=== PATIENT | male | born 1945 | race Caucasian/White ===

== ENCOUNTER 2016-09-25 09:00 | Outpatient (CLI) ==
[2013-04-08 17:36] VITALS: BMI 33.0
[2016-09-25 12:43] LABS: BASOPHILS % (AUTO) 0.8 % (0.0-3.0); EOSINOPHILS # (AUTO) 0.2 K/ul (0.0-0.7); EOSINOPHILS % (AUTO) 4.2 % (0.0-7.0); HEMATOCRIT 42.3 % (42.0-52.0); HEMOGLOBIN 13.9 g/dl (14.0-18.0); IMMATURE GRANULOCYTE % (AUTO) 0.4 % (0.0-5.0); LYMPHOCYTES % (AUTO) 18.4 (10.0-50.0); MEAN CORPUSCULAR HEMOGLOBIN 30.7 pg (27.0-31.0); MEAN CORPUSCULAR HGB CONC 32.9 (31.8-35.4); MEAN CORPUSCULAR VOLUME 93.4 fl (80.0-94.0); MONOCYTES # (AUTO) 0.5 K/uL (0.4-2.0); MONOCYTES % (AUTO) 9.2 (0-10); NEUTROPHILS # (AUTO) 3.5 K/ul (2.0-6.9); PLATELET COUNT 275 10^3/uL (140-440); RED BLOOD COUNT 4.53 10^6/ul (4.70-6.10); WHITE BLOOD COUNT 5.22 K/ul (4.2-10.2)
[2016-09-25 12:59] LABS: BILIRUBIN,URINE Negative (NEGATIVE); KETONES,URINE Negative (NEGATIVE); LEUKOCYTE ESTERASE ,URINE Negative (NEGATIVE); NITRITE,URINE Negative (NEGATIVE); PH,URINE 6.5 (5-9); PROTEIN,URINE Negative (NEGATIVE); URINE, BLOOD Negative (NEGATIVE)
[2016-09-25 13:04] LABS: ADD URINE MICROSCOPIC NO
[2016-09-25 13:28] LABS: ALBUMIN 3.5 g/dL (3.4-5.0); ALBUMIN/GLOBULIN RATIO 0.97; ANION GAP 10.2; BILIRUBIN,TOTAL 0.42 mg/dL (0.00-1.20); BUN/CREATININE RATIO 9.83; CALCIUM 8.7 mg/dL (8.2-10.2); CHOL/HDL RATIO 6.1 (4.5-6.4); CREATININE 1.22 mg/dL (0.60-1.10); POTASSIUM 4.2 mmol/L (3.5-5.1); TOTAL PROTEIN 7.1 g/dL (5.8-8.1)
[2016-09-26 15:59] LABS: PSA, FREE 1.24 ng/mL
== END 2016-09-25 09:01 | disposition home or self-care (01) ==
LOC: LAB 09:00
PROVIDERS: ATTEND General Practice
DX: R39.11 Hesitancy of micturition (principal); R39.15 Urgency of urination; Z00.00 Encounter for general adult medical examination without abnormal findings; E78.5 Hyperlipidemia, unspecified
CPT/HCPCS: 36415; 80053; 80061; 81001; 84443; 85025

== ENCOUNTER 2016-10-02 16:02 | Outpatient (CLI) ==
[2013-04-08 17:36] VITALS: BMI 33.0
--- NOTE | 2016-10-02 16:28 | DI ---
Exam: Left foot three-view. HISTORY: Pain and left foot. Findings: Three images of the left foot are submitted. These demonstrate no acute fracture or disl ocation. There is no osseous erosion or radiodense foreign body. There is mild joint space narrowi ng and sclerosis at the first metatarsophalangeal joint. There are small dorsal and plantar calcane al spurs. Atherosclerotic calcifications are noted. No focal soft tissue swelling is noted. Impressions: Mild degenerative disease at the first metatarsophalangeal joint. Small dorsal and plantar calcaneal spurs. No acute fracture or dislocation. Atherosclerosis.
== END 2016-10-02 16:03 | disposition home or self-care (01) ==
LOC: RAD 16:02
PROVIDERS: ATTEND General Practice
DX: M79.672 Pain in left foot (principal)

== ENCOUNTER 2017-02-19 13:29 | Outpatient (CLI) ==
[2013-04-08 17:36] VITALS: BMI 33.0
--- NOTE | 2017-02-19 14:25 | CT ---
EXAM: CT ABDOMEN AND PELVIS HISTORY: Lower abdominal pain TECHNIQUE: CT abdomen and pelvis without intravenous contrast. Images were reconstructed using 5 mm section thickness. Reformations were prepared. COMPARISON: None FINDINGS: Diagnostic limitations exist without including contrast enhanced images. No focal hepatic or splenic lesions identified. Gallbladder, pancreas and adrenal glands are within normal limits. There is a upper posterior exophytic 1.4 cm mass off of the right renal cortex with higher than water attenuatio n possibly representing a cyst with internal proteinaceous fluid although correlation with ultrasound should be considered to assure simple nature. There is subtle nonspecific perinephric fat stranding . No hydronephrosis or evidence of ureteral obstruction. Mild atherosclerotic disease. Stomach is within normal limits. Normal appendix. There is mild sigmoid diverticulosis. Circumferent ial thickening of the urinary bladder. The prostate is significantly enlarged and lobulated. Given the degree of prostate lobulation, a primary or secondary neoplasm of the urinary bladder would be di fficult to completely exclude although probably less likely. Correlate clinically. There is no ascit es. Prominent fatty inguinal canals. Age-related degenerative changes of the spine and hips. Lung bases are clear. No pneumoperitoneum. There is no ascites. IMPRESSION: 1. The prostate is significantly enlarged and lobulated. Given the degree of prostate lobulation, a primary or secondary neoplasm of the urinary bladder would be difficult to completely exclude althoug h probably less likely. Correlate clinically. Circumferential thickening of the urinary bladder likel y related to a degree of chronic, partial bladder outlet obstruction or cystitis. 2. Small exophytic right renal cortical mass possibly a cyst. Correlate with ultrasound. 3. Mild sigmoid diverticulosis without diverticulitis. 4. Mild atherosclerosis.
[2017-02-19 16:45] LABS: BASOPHILS # (AUTO) 0.1 K/uL (0-0.2); BASOPHILS % (AUTO) 0.9 % (0.0-3.0); EOSINOPHILS # (AUTO) 0.2 K/ul (0.0-0.7); EOSINOPHILS % (AUTO) 2.2 % (0.0-7.0); HEMATOCRIT 42.8 % (42.0-52.0); HEMOGLOBIN 14.6 g/dl (14.0-18.0); IMMATURE GRANULOCYTE % (AUTO) 0.3 % (0.0-5.0); LYMPHOCYTES % (AUTO) 14.3 (10.0-50.0); MEAN CORPUSCULAR HEMOGLOBIN 30.9 pg (27.0-31.0); MEAN CORPUSCULAR HGB CONC 34.1 (31.8-35.4); MEAN CORPUSCULAR VOLUME 90.5 fl (80.0-94.0); MONOCYTES # (AUTO) 0.5 K/uL (0.4-2.0); MONOCYTES % (AUTO) 7.1 (0-10); NEUTROPHILS # (AUTO) 5.2 K/ul (2.0-6.9); NEUTROPHILS % (AUTO) 75.2; PLATELET COUNT 311 10^3/uL (140-440); RED BLOOD COUNT 4.73 10^6/ul (4.70-6.10); WHITE BLOOD COUNT 6.94 K/ul (4.2-10.2)
[2017-02-19 17:11] LABS: ALBUMIN 3.7 g/dL (3.4-5.0); ALBUMIN/GLOBULIN RATIO 0.95; BILIRUBIN,TOTAL 0.59 mg/dL (0.00-1.20); BUN/CREATININE RATIO 12.38; CALCIUM 9.5 mg/dL (8.2-10.2); CREATININE 1.05 mg/dL (0.60-1.10); TOTAL PROTEIN 7.6 g/dL (5.8-8.1)
[2017-02-20 17:26] LABS: ADD URINE MICROSCOPIC NO; BILIRUBIN,URINE Negative (NEGATIVE); KETONES,URINE Negative (NEGATIVE); LEUKOCYTE ESTERASE ,URINE Negative (NEGATIVE); NITRITE,URINE Negative (NEGATIVE); PROTEIN,URINE Negative (NEGATIVE); URINE, BLOOD Negative (NEGATIVE)
== END 2017-02-19 13:30 | disposition home or self-care (01) ==
LOC: RAD 13:29
PROVIDERS: ATTEND General Practice
DX: R10.9 Unspecified abdominal pain (principal)
CPT/HCPCS: 36415; 80053; 81001; 85025

== ENCOUNTER 2017-10-15 11:51 | Outpatient (CLI) ==
[2013-04-08 17:36] VITALS: BMI 33.0
== END 2017-10-15 11:52 | disposition home or self-care (01) ==
LOC: FCC-LAB 11:51
PROVIDERS: ATTEND General Practice
DX: E78.5 Hyperlipidemia, unspecified (principal); R94.6 Abnormal results of thyroid function studies; Z12.5 Encounter for screening for malignant neoplasm of prostate; Z79.899 Other long term (current) drug therapy
CPT/HCPCS: 36415; 80053; 80061; 81001; 84443; 85025

== ENCOUNTER 2017-10-22 12:16 | Outpatient (CLI) ==
[2013-04-08 17:36] VITALS: BMI 33.0
== END 2017-10-22 12:17 | disposition home or self-care (01) ==
LOC: LAB 12:16
PROVIDERS: ATTEND General Practice
DX: R79.89 Other specified abnormal findings of blood chemistry (principal); Z79.899 Other long term (current) drug therapy
CPT/HCPCS: 36415; 84443

== ENCOUNTER 2018-10-28 08:24 | Outpatient (CLI) ==
[2013-04-08 17:36] VITALS: BMI 33.0
== END 2018-10-28 08:25 | disposition home or self-care (01) ==
LOC: RHC-LAB 08:24
PROVIDERS: ATTEND General Practice
DX: E78.5 Hyperlipidemia, unspecified (principal)
CPT/HCPCS: 36415; 80053; 80061; 81001; 85025

== ENCOUNTER 2018-11-04 15:38 | Outpatient (CLI) ==
[2013-04-08 17:36] VITALS: BMI 33.0
== END 2018-11-04 15:39 | disposition home or self-care (01) ==
LOC: RHC-LAB 15:38
PROVIDERS: ATTEND General Practice
DX: N40.0 Benign prostatic hyperplasia without lower urinary tract symptoms (principal); R94.6 Abnormal results of thyroid function studies; R97.20 Elevated prostate specific antigen [PSA]; Z12.5 Encounter for screening for malignant neoplasm of prostate
CPT/HCPCS: 36415; 84443

== ENCOUNTER 2018-12-31 08:33 | Outpatient (CLI) ==
[2013-04-08 17:36] VITALS: BMI 33.0
== END 2018-12-31 08:34 | disposition home or self-care (01) ==
LOC: RHC-LAB 08:33
PROVIDERS: ATTEND General Practice
DX: E78.5 Hyperlipidemia, unspecified (principal); R94.6 Abnormal results of thyroid function studies; Z79.899 Other long term (current) drug therapy; Z12.11 Encounter for screening for malignant neoplasm of colon; Z00.00 Encounter for general adult medical examination without abnormal findings; C44.621 Squamous cell carcinoma of skin of unspecified upper limb, including shoulder
CPT/HCPCS: 36415; 80053; 80061; 82272

== ENCOUNTER 2019-01-03 09:47 | Outpatient (CLI) ==
[2013-04-08 17:36] VITALS: BMI 33.0
== END 2019-01-03 09:48 | disposition home or self-care (01) ==
LOC: RHC-LAB 09:47
PROVIDERS: ATTEND General Practice
DX: E78.5 Hyperlipidemia, unspecified (principal); R94.6 Abnormal results of thyroid function studies; Z12.11 Encounter for screening for malignant neoplasm of colon; Z79.899 Other long term (current) drug therapy
CPT/HCPCS: 36415; 81001; 85025

== ENCOUNTER 2019-01-10 08:24 | Outpatient (CLI) | payer OTHER ==
[2013-04-08 17:36] VITALS: BMI 33.0
--- NOTE | 2019-01-10 11:23 | CT ---
EXAM: CT of the abdomen pelvis with contrast History: Lower abdominal pain, lower uterine stream Comparison: CT abdomen pelvis 02/19/2017 Technique: Multiplanar CT images through the abdomen pelvis were obtained following administration o f IV contrast Findings: Lung bases are clear. No acute osseous abnormalities. No gallstones identified by CT. No liver or splenic lesions. 1.8 cm indeterminate mass within the r ight kidney. Left kidney is unremarkable. Pancreas is within normal limits. Adrenal glands are nor mal. No bowel obstruction. Significantly enlarged prostate abutting the base of the bladder. The b ladder is moderately distended. No perirectal inflammation. Colonic diverticulosis. No free air an d no ascites. No inflammatory stranding. The appendix is not dilated or inflamed. No pathologicall y enlarged lymph nodes. Impression: 1. Enlarged prostate abutting the base of the bladder. 2. The bladder is distended most likely due to bladder outlet obstruction from the enlarged prostate . 3. Colonic diverticulosis. 4. Indeterminate mass within the right kidney. Recommend further evaluation with renal ultrasound
== END 2019-01-10 08:25 | disposition home or self-care (01) ==
LOC: RAD 08:24
PROVIDERS: ATTEND General Practice
DX: R10.9 Unspecified abdominal pain (principal); N40.0 Benign prostatic hyperplasia without lower urinary tract symptoms; D04.62 Carcinoma in situ of skin of left upper limb, including shoulder

== ENCOUNTER 2019-01-21 08:20 | Outpatient (CLI) ==
[2013-04-08 17:36] VITALS: BMI 33.0
--- NOTE | 2019-01-21 11:06 | US ---
EXAMINATION: Retroperitoneal renal sonogram. HISTORY: Renal mass TECHNIQUE: Real time with duplex. COMPARISON: CT dated 01/10/2019 FINDINGS: The right kidney measures 12 x 4.7 x 5.1 cm. Superior pole hypoechoic, partially exophytic cyst with low-level internal echoes and possible thin septation measures 1.6 x 1.7 x 2.2 cm. No hydronephrosi s or obvious calculi. The left kidney measures 12.3 x 4.5 x 4.1 cm. No hydronephrosis or obvious calculi. Visualized bladder is unremarkable. IMPRESSION: 1. No acute findings. 2. Right superior pole 1.7 cm complex cyst. Recommend MRI versus renal mass protocol CT for further evaluation. 3. Normal left renal ultrasound.
== END 2019-01-21 08:21 | disposition home or self-care (01) ==
LOC: RAD 08:20
PROVIDERS: ATTEND General Practice
DX: N40.0 Benign prostatic hyperplasia without lower urinary tract symptoms (principal); N28.89 Other specified disorders of kidney and ureter

== ENCOUNTER 2024-02-04 09:21 | Observation (INO) ==
--- NOTE | 2024-02-04 09:27 | ED.PDOC ---
General ED Provider: Dr. KELLIE SANDS MD Chief Complaint: Dizziness Stated Complaint: Patient is a 78-year-old male that reported to the emergency department for near syncopal episode and acute abdominal pain. Patient stated that on Sunday he ate some soup and not too long after he got nauseated with vomiting. He stated that he did not vomit up any blood. Patient stated that starting yesterday he continued to have nausea with dizziness. Patient stated that he has had multiple dizziness spells that were different than in the past when he he would get up out of the bed and feel little dizzy. Patient stated that when he got up out of his bed and walked down the [place] he got seriously dizzy. Patient stated that he did not fall and was able to catch himself. Patient stated that he has not had any recent headaches, head injuries, or any acute injuries. Patient stated that he has been able to hold down some fluids. Patient stated that he has not taken anything for his symptoms. Patient stated that he is continue to have bilateral lower abdominal pain. Patient denied any hematochezia, hemoptysis, or melanic stools. Patient rates his pain at an 8 out of 10 at its worst. Patient stated that it is an aching pain. Patient stated that his last bowel movement was 2 days ago and was normal in consistency. Patient states that nothing makes the symptoms worse or better. Patient denies any chest pain, shortness of breath, vomiting, loss of consciousness, headache, fever, or any other acute symptoms not currently mentioned in HPI. Patient's GCS is 15. Patient's vital signs are stable. Time Seen by Provider: 02/04/24 09:23 Mode of Arrival: Walk-In Information Source: Patient Exam Limitations: No limitations Primary Care Provider: DANGELO ELLIOTT APRN, [employer] DEVELOPER-C Nursing and Triage Documentation Reviewed and Agree: Yes Does Patient Take Opioids?: No Is Patient Opioid Naive?: No What is Opioid Naive?: *Opioid Naive implies the patient is not already taking opioids or not chronically receiving opioids on a daily basis. *PRN dosing is not "usually" associated with tolerance. *Patients are at higher risk of over-sedation and aspiration. Is Patient Opioid Tolerant?: No What is Opioid Tolerant?: *Opioid Tolerance implies less than the expected response to an opioid. *Acquired tolerance is defined by the patient taking 60mg of oral morphine daily (or equianalgesic dose of another opioid) for 1 week or more. *Often associated with chronic pain. *May take more than usual dose to achieve desired pain control. Review of Systems Review Of Systems Constitutional: Reports No symptoms Eyes: Reports No symptoms Ears, Nose, Mouth, Throat: Reports No symptoms Respiratory: Reports No symptoms Cardiac: Reports Lightheadedness GI: Reports Abdominal pain : Reports No symptoms Musculoskeletal: Reports No symptoms Skin: Reports No symptoms Neurological: Reports Anxiety Endocrine: Reports No symptoms Hematologic/Lymphatic: Reports No symptoms All Other Systems: Reviewed and Negative [facility] Medical History Sinusitis SEASONAL ALLERGIES J32.9 - Chronic sinusitis, unspecified (ICD-10) Arthritis RIGHT MIDDLE FINGER M19.90 - Unspecified osteoarthritis, unspecified site (ICD-10) Male erectile dysfunction AT TIMES. PATIENT DOES HAVE A SLOW URINE STREAM N52.9 - Male erectile dysfunction, unspecified (ICD-10) Family History Mother , HEART ATTACK at age 83. Diabetes Dementia FATHER , RESPITORY FAILURE at age 76. No problems noted. Social History Smoking and tobacco status: Never smoker Surgical History History of surgery on integumentary structure PATIENT HAS HAD 6 OR MORE MOLES REMOVED OVER A PERIOD OF YEARS Z98.890 - Other specified postprocedural states (ICD-10) Physical Exam Physical Exam Appearance: Reports Well-appearing, No pain distress and Well-nourished Ill-appearing: None Pain Distress: None Eyes: Reports Conjunctiva clear ENT: Reports Nose normal and Oropharynx normal Neck: Supple Respiratory: Reports Airway patent, Breath sounds clear and Breath sounds equal Cardiovascular: Reports RRR, Pulses normal, No rub and No murmur GI/: Reports Soft, Nontender, No masses and Bowel sounds normal Musculoskeletal: Reports Normal strength, ROM intact, No edema and No calf tenderness Skin: Reports Warm, Dry and Normal color Neurological: Reports Sensation intact, Motor intact, Cranial nerves intact, Alert and Oriented Psychiatric: Reports Anxious Course Course 02/04/24 09:35 02/04/24 09:35 Orders, Labs, Meds: Lab Review 02/04/24 02/04/24 09:35 10:41 WBC 9.79 RBC 4.37 L Hgb 13.1 L Hct 39.7 L MCV 90.8 MCH 30.0 MCHC 33.0 RDW Coeff of Magali 12.9 Plt Count 300 Immature Gran % (Auto) 0.3 Neut % (Auto) 85.5 H Lymph % (Auto) 5.9 L [place] % (Auto) 7.6 Eos % (Auto) 0.3 Baso % (Auto) 0.4 Neut # (Auto) 8.4 H Lymph # (Auto) 0.6 [place] # (Auto) 0.7 Eos # (Auto) 0.0 Baso # (Auto) 0.0 Immature Gran # (Auto) 0.0 Sodium 129.0 L Potassium 4.39 Chloride 98.9 Carbon Dioxide 21.2 L Anion Gap 13.29 BUN 16.3 Creatinine 1.55 H Estimated GFR (MDRD) 44.00 BUN/Creatinine Ratio 10.51 Glucose 139.8 H Lactic Acid 0.84 Calcium 8.61 Total Bilirubin 0.75 AST 40.4 ALT 26.1 Alkaline Phosphatase 90.5 Troponin I 0.031 Total Protein 7.65 Albumin 4.16 Globulin 3.49 Albumin/Globulin Ratio 1.19 Urine Color Judy Urine Clarity Clear Urine pH 6.0 Ur Specific [place] >=1.030 Urine Protein 2+ H Urine Glucose (UA) Negative Urine Ketones 1+ H Urine Blood Trace-intact H Urine Nitrite Negative Urine Bilirubin Negative Urine Urobilinogen 0.2 Ur Leukocyte Esterase Negative Urine Microscopic RBC 2-5 Ur Squamous Epith Cells Not Reportable Urine Mucus 1+ H. pylori IgG Antibody Negative Influ A Molecular Assay Negative by naat Influ B Molecular Assay Negative by naat SARS CoV-2 RNA Rapid VANGIE Negative Orders Category Date Time Status EKG-(ED ONLY) Stat CARDIO 02/04/24 09:23 Completed NPO REMINDER: IMAGING ONCE CARE 02/04/24 09:54 Completed ED REFRIGERATION LEAD APPLIED .ONCE EMERGENCY 02/04/24 09:23 Active CBC W/ AUTO DIFF Stat LAB 02/04/24 09:35 Completed COMPREHENSIVE METABOLIC PANEL Stat LAB 02/04/24 09:35 Completed FLU A/B MOLECULAR Stat LAB 02/04/24 09:35 Completed H. PYLORI SCREEN Stat LAB 02/04/24 09:35 Completed LACTIC ACID Stat LAB 02/04/24 09:35 Completed SARS COV-2 RNA RAPID VANGIE Stat LAB 02/04/24 09:35 Completed TROPONIN I Stat LAB 02/04/24 09:35 Completed URINALYSIS C & S IF INDICATED Stat LAB 02/04/24 10:41 Completed Morphine Sulfate [Morphine 2 mg/ml Syringe] Meds 02/04/24 09:50 Discontinued 2 mg IVP ONCE ONE Ondansetron HCl/Pf [Zofran 4 mg/2 ml] Meds 02/04/24 09:50 Discontinued 4 mg IVP ONCE STA Pantoprazole Sodium [Protonix] Meds 02/04/24 09:50 Discontinued 40 mg IVP ONCE ONE Ringers Lactated Solution [Lactated Ringers] 1,000 ml Meds 02/04/24 10:33 Active IV 125 mls/hr Sodium Chloride 0.9% [Sodium Chloride] 1,000 ml Meds 02/04/24 09:24 Discontinued IV BOLUS CHEST, 1V AP ONLY Stat RADS 02/04/24 09:[address] ABDOMEN/PELVIS W CONTRAST Stat RADS 02/04/24 09:[address] HEAD W/O CONTRAST Stat RADS 02/04/24 09:23 Taken Medications Generic Name Dose Route Start Last Admin Trade Name Freq PRN Reason Stop Dose Admin Lactated Ringer's 1,000 mls @ 125 mls/hr 02/04/24 10:33 02/04/24 11:20 Lactated Ringers IV 02/04/24 18:32 125 mls/hr .Q8H ONE Administration Discontinued Medications Generic Name Dose Route Start Last Admin Trade Name Freq PRN Reason Stop Dose Admin Sodium Chloride 1,000 mls @ 1,000 mls/hr 02/04/24 09:24 02/04/24 11:15 Sodium Chloride IV 02/04/24 10:23 Infused BOLUS ONE Infusion Morphine Sulfate 2 mg 02/04/24 09:50 02/04/24 09:59 Morphine Sulfate 2 Mg/Ml Syringe IVP 02/04/24 09:51 2 mg ONCE ONE Administration Ondansetron HCl 4 mg 02/04/24 09:50 02/04/24 09:58 Ondansetron Hcl/Pf 4 Mg/2 Ml Sdv IVP 02/04/24 09:51 4 mg ONCE STA Administration Pantoprazole Sodium 40 mg 02/04/24 09:50 02/04/24 09:58 Pantoprazole Sodium 40 Mg Vial IVP 02/04/24 09:51 40 mg ONCE ONE Administration Vital Signs: Temp Pulse Resp BP Pulse Ox 02/04/24 09:23 98.7 F 71 18 145/77 H 95 ALIZA Risk Score ALIZA Risk Score: Risk Score Odds of by 30D 0 0.1 (0.1-0.2) 1 0.3 (0.2-0.3) 2 0.4 (0.3-0.5) 3 0.7 (0.6-0.9) 4 1.2 (1.0-1.5) 5 2.2 (1.9-2.6) 6 3.0 (2.5-3.6) 7 4.8 (3.8-6.1) Physician Progress Note: Patient is a 78-year-old male that reported to the emergency department for near syncopal episode and epigastric abdominal pain. Patient stated that he has a history of dizziness and has been seen by multiple specialist and has not been able to find out what is going on with him. Patient stated that today he just felt progressively worse and had weakness. Patient stated that he has not passed out nor has he had any recent head injury. Patient stated that he has not had any recent falls. Patient did state that yesterday he had some pizza and has had epigastric pain since. Patient stated that he takes his Protonix as prescribed and this has not helped his symptoms. Patient denied any radiations of his epigastric pain. Patient rates his pain at a 6 out of 10. Patient stated that it is a burning pain. Patient stated that his last colonoscopy was 2 years ago and was normal. Patient does not think he has ever had an upper endoscopy. Patient stated that he has also had some nausea but no vomiting with his symptoms. Patient states that nothing makes his symptoms worse nor nothing makes it better. Patient also claimed to have a cough for the past couple days. Patient stated that he has not been around any other sick contacts. Patient did state that he has been anxious lately as his has been placed in a half-way. Patient denies any hematochezia, hemoptysis, or melanic stools. Patient also denied any other acute symptoms such as chest pain, shortness of breath, vomiting, headache, fever, or any other acute symptoms not currently mentioned in HPI. Patient's GCS is 15. Patient's vital signs are currently stable. Will order IV NS 1 L bolus once for dehydration -Will order CT head for near syncope. GCS 15. -WIll order CXR, EKG, troponin and baseline labs. Will order an H. pylori test -Will give the patient IV morphine 2 mg once for 8 of 10 abdominal pain. -Will order CT of the abdomen and pelvis with contrast to rule out diverticulitis versus any other acute abdominal pathology. -Will give the patient IV Protonix 40 mg. -Will give the patient IV ondansetron 4 mg once for nausea. -EKG shows sinus rhythm with premature atrial complexes. Ventricular rate is [address] elevations noted. [place]oden normal. This was interpreted by the ER physician. -Chest x-ray shows no acute cardiopulmonary disease. This was interpreted by the ER physician. Radiology states that patient has left basilar atelectasis. -Patient found to have hyponatremia of 129. Patient received NS at this visit. -Patient has anemia of chronic disease with a hemoglobin of 13 and hematocrit of 39. -Patient has an MARGO on CKD. Patient's creatinine is 1.51 which is elevated from previous creatinines. Will continue IV fluids (IV lactated Ringer's 125 mL an hour 1 L.) -Troponin is negative. -Patient is flu and strep negative. -CT of the head shows no acute intercranial bleed or pathology. -CT of the abdomen and pelvis showed - Bladder wall thickening which may be secondary to bladder outlet obstruction versus cystitis. Liquefied stool in the right-sided colon suggestive of enterocolitis. Colonic diverticula without evidence of acute diverticulitis. Normal appendix. Enlarged prostate measuring 6.8 cm. Right renal cyst measuring 2.5 cm. Small bilateral fat containing inguinal hernias. Small hiatal hernia. Mild bibasilar atelectasis and/or pneumonitis. -Will treat patient's gastroenteritis with flagyl. Will call hospitalist about admission. [phone]) spoke to hospitalist at [facility] who agreed to accept the patient for acute kidney injury, gastroenteritis, dehydration, near syncopal episodes. Patient's vital signs are stable at time of admission to observation at the hospital. Discharge Plan Discharge Patient Disposition: PLACED OBSERVATION Discharge Problem: Near syncope, Acute hyponatremia, Acute kidney injury, Anemia of chronic disease, Dehydration, Diverticulosis, Benign cyst of right kidney, Gastroenteritis Benign prostatic hyperplasia Qualifiers: Lower urinary tract symptom presence: unspecified whether lower urinary tract symptoms present Qualified Code(s): N40.0 - Benign prostatic hyperplasia without lower urinary tract symptoms Did you review [place] [employer] for ALL controlled substances?: Not Applicable ED Provider: KELLIE SANDS Condition: Stable
[2024-02-04 09:29] VITALS: BMI 34.0
[2024-02-04 09:39] LABS: BASOPHILS % (AUTO) 0.4 % (0.0-3.0); EOSINOPHILS % (AUTO) 0.3 % (0.0-7.0); HEMATOCRIT 39.7 % (42.0-52.0); HEMOGLOBIN 13.1 g/dl (14.0-18.0); IMMATURE GRANULOCYTE % (AUTO) 0.3 % (0.0-5.0); LYMPHOCYTES # (AUTO) 0.6 K/uL (0.60-3.4); LYMPHOCYTES % (AUTO) 5.9 (10.0-50.0); MEAN CORPUSCULAR VOLUME 90.8 fl (80.0-94.0); MONOCYTES # (AUTO) 0.7 K/uL (0.4-2.0); MONOCYTES % (AUTO) 7.6 (0-10); NEUTROPHILS # (AUTO) 8.4 K/ul (2.0-6.9); NEUTROPHILS % (AUTO) 85.5 % (42.2-75.2); PLATELET COUNT 300 10^3/uL (140-440); RDW COEFFICIENT OF VARIATION 12.9 % (11.6-14.8); RED BLOOD COUNT 4.37 10^6/ul (4.70-6.10); WHITE BLOOD COUNT 9.79 K/ul (4.2-10.2)
[2024-02-04] MEDS: SODIUM CHLORIDE 1,000 ML IV ONE (09:51)
[2024-02-04 09:54] LABS: ALANINE AMINOTRANSFERASE 26.1 U/L (0-50); ALBUMIN 4.16 g/dL (3.5-5.0); ALKALINE PHOSPHATASE 90.5 U/L (56-119); ASPARTATE AMINO TRANSFERASE 40.4 U/L (17-59); BILIRUBIN,TOTAL 0.75 mg/dL (0.2-1.3); BLOOD UREA NITROGEN 16.3 mg/dL (9-20); CALCIUM 8.61 mg/dL (8.4-10.2); CARBON DIOXIDE 21.2 mmol/L (22-30.0); CHLORIDE 98.9 mmol/L (98-107); CREATININE 1.55 mg/dL (0.60-1.10); GLUCOSE 139.8 mg/dL (74-106); POTASSIUM 4.39 mmol/L (3.5-5.1); TOTAL PROTEIN 7.65 g/dL (6.3-8.2)
[2024-02-04 09:57] LABS: MOLECULAR FLU A NEGATIVE BY NAAT (NEGATIVE); MOLECULAR FLU B NEGATIVE BY NAAT (NEGATIVE); SARS COV-2 RNA RAPID NAAT NEGATIVE (NEGATIVE)
[2024-02-04] MEDS: PROTONIX IVP ONE (09:58)
[2024-02-04] MEDS: ZOFRAN 4 MG/2 ML IVP STA (09:58)
[2024-02-04] MEDS: MORPHINE 2 MG/ML SYRINGE IVP ONE (09:59)
[2024-02-04 10:06] LABS: TROPONIN I 0.031 ng/ml (0.0000-0.120)
--- NOTE | 2024-02-04 10:18 | DI ---
EXAM: CHEST RADIOGRAPH TECHNIQUE: Single frontal chest radiograph. HISTORY: Dizziness. COMPARISON: 11/22/2021. FINDINGS: Mild left basilar atelectasis. Old calcified granulomatous disease. Lungs are otherwise clear. Previous median sternotomy, aortic valve replacement, and Atriaclip. Normal heart size. There is no pleural effusion. There is no pneumothorax. IMPRESSION: 1. Mild left basilar atelectasis. 2. Prior cardiac surgery. 3. Otherwise unremarkable chest radiograph.
[2024-02-04 10:27] LABS: H. PYLORI ANTIBODY NEGATIVE (NEGATIVE)
[2024-02-04 10:52] LABS: BILIRUBIN,URINE Negative (NEGATIVE); CLARITY,URINE Clear (CLEAR); COLOR,URINE Amber (YELLOW); GLUCOSE, URINE (UA) Negative (NEGATIVE); KETONES,URINE 1+ (NEGATIVE); LEUKOCYTE ESTERASE ,URINE Negative (NEGATIVE); NITRITE,URINE Negative (NEGATIVE); PROTEIN,URINE 2+ (NEGATIVE); URINE, BLOOD Trace-intact (NEGATIVE); UROBILINOGEN,URINE 0.2 (0.2)
[2024-02-04 11:00] LABS: MUCUS,URINE 1+ (NOT PRESENT)
[2024-02-04] MEDS: LACTATED RINGERS 1,000 ML IV ONE (11:20)
--- NOTE | 2024-02-04 11:35 | CT ---
EXAM: CT OF THE ABDOMEN AND PELVIS WITH CONTRAST COMPARISON: CT abdomen pelvis eight 30 90 HISTORY: Acute lower abdominal pain. TECHNIQUE: Axial CT images were obtained through the abdomen and pelvis with the administration of in travenous contrast. Coronal and sagittal reformatted images were also submitted for interpretation. FINDINGS: Liver: Liver measures 19.9 cm. Hepatic steatosis. Correlation with LFTs recommended. Gallbladder: No gallstones. Bile ducts: No intra or extrahepatic biliary ductal dilatation. Pancreas: No lesions. The main pancreatic duct is not dilated. Spleen: The spleen is not enlarged. Small accessory splenule. Adrenal glands: Within normal limits. Kidneys: No hydronephrosis. No renal calculi. Right renal cyst measuring 2.5 cm. Ureters: Within normal limits Urinary bladder: Bladder wall thickening which may be secondary to bladder outlet obstruction versus cystitis. Correlation with urinalysis recommended. Reproductive organs: Prostate measures 6.8 cm. Peritoneum: No ascites or free intraperitoneal air. Colonic diverticula without evidence of acute di verticulitis. Liquefied stool in the right-sided colon suggestive of enterocolitis. Clinical correl ation advised. Normal appendix. Gastrointestinal tract: Normal caliber. Small hiatal hernia. Small duodenal diverticulum measuring up to 1.9 cm. Lymph nodes: Pericaval lymph node measuring up to 1.1 cm in short axis, nonspecific but likely reacti ve. Attention on follow-up recommended. Prominent left groin lymph nodes measuring up to 1.4 cm in short axis. Vessels: Atherosclerosis in the abdominal aorta and branch vessels. No aneurysm. Abdominal wall: Small bilateral fat containing inguinal hernias. Osseous structures: Degenerative changes. Lower thorax: Mild bibasilar atelectasis and/or pneumonitis. IMPRESSION: - Bladder wall thickening which may be secondary to bladder outlet obstruction versus cystitis. Francisco Javier elation with urinalysis recommended. - Liquefied stool in the right-sided colon suggestive of enterocolitis. Clinical correlation advised . - Colonic diverticula without evidence of acute diverticulitis. Normal appendix. - Enlarged prostate measuring 6.8 cm. - Right renal cyst measuring 2.5 cm. - Small bilateral fat containing inguinal hernias. Small hiatal hernia. - Mild bibasilar atelectasis and/or pneumonitis. All CT scans are performed using dose optimization techniques as appropriate to the performed exam an d include at least one of the following: Automated exposure control, adjustment of the mA and/or kV according t o size, and the use of iterative reconstruction technique.
[2024-02-04] MEDS: FLAGYL 500 MG/100 ML 500 MG/100 ML BAG IV ONE (12:22)
[2024-02-04] MEDS ORDERED: ZOFRAN 4 MG/2 ML IVP PRN (12:35)
[2024-02-04] MEDS ORDERED: TYLENOL PO PRN (12:40)
[2024-02-04] MEDS: SODIUM CHLORIDE 1,000 ML IV SCH (13:30)
--- NOTE | 2024-02-04 14:17 | CT ---
EXAM: CT BRAIN HISTORY: Near-syncope TECHNIQUE: CT brain without intravenous contrast. 5-mm axial sections with Reformations. COMPARISON: None FINDINGS: There is generalized cerebral volume loss. There is moderate periventricular and deep white matter l ow attenuation which although nonspecific is suggestive of chronic microvascular ischemic change. T he brain otherwise was unremarkable without evidence of hemorrhage or large vessel distribution rece nt ischemic infarction. There is no suggestion of acute hydrocephalus or subdural fluid collection. No mass or mass effect. Cranium has no acute finding. Mastoid processes are aerated. The visualiz ed paranasal sinuses are clear. IMPRESSION: No acute intracranial process. - - - - - All CT scans are performed using dose optimization techniques as appropriate to the performed exam an d include at least one of the following: Automated exposure control, adjustment of the mA and/or kV according t o size, and the use of iterative reconstruction technique.
--- NOTE | 2024-02-04 14:25 | PCM ---
Date of Service Date Seen by Provider: 02/04/24 Admit Day/Time Admission Date: 02/04/24 Reason for Admission Chief Complaint: ACUTE KIDNEY INJURY, DEHYDRATION, GASTRO, SYNCOPAL Hospital Provider Hospital Provider: KOBI VALENCIA, [facility] [place] Phys[place] Primary Care Physician: DANGELO ELLIOTT APRN, FNP-C History of Present Illness History of Present Illness: 78 yo male presented to the ER with complaints of dizziness and abdominal pain. Patient states that the abdominal pain started on Sunday night after work. Reports pain is located in lower abdomen and is worse after he eats. Describes as sharp, aching. Had 1 episode of vomiting yesterday and has been nauseated. States that the dizziness is constant but worse upon standing. Patient was found to have a sodium of [address] scan. Denies fever that he is aware of. Patient does report sob on exertion and orthopnea that has been going on for several weeks. Has pmh of open heart, follows with cardiology at [facility]. Denies chf history. Denies lower extremity edema consistently. He has recently been treated for MRSA infection to the groin and has appox. 4 days left to complete antibiotic course. States wound is healing and no longer draining. Does not wish for provider to assess. Admitted to med/surg observation. Case Discussed With Case Discussed With: Patient's case was discussed with the ER Physicians, Dr. Mello. [facility] Medical History Sinusitis SEASONAL ALLERGIES J32.9 - Chronic sinusitis, unspecified (ICD-10) Arthritis RIGHT MIDDLE FINGER M19.90 - Unspecified osteoarthritis, unspecified site (ICD-10) Male erectile dysfunction AT TIMES. PATIENT DOES HAVE A SLOW URINE STREAM N52.9 - Male erectile dysfunction, unspecified (ICD-10) Surgical History Heart valve replaced Z95.2 - Presence of prosthetic heart valve (ICD-10) S/P triple vessel bypass Z95.1 - Presence of aortocoronary bypass graft (ICD-10) History of surgery on integumentary structure PATIENT HAS HAD 6 OR MORE MOLES REMOVED OVER A PERIOD OF YEARS Z98.890 - Other specified postprocedural states (ICD-10) Family History Mother , HEART ATTACK at age 83. Diabetes Dementia FATHER , RESPITORY FAILURE at age 76. No problems noted. FATHER COPD (chronic obstructive pulmonary disease) BROTHER CVA (cerebral vascular accident) Social History Smoking and tobacco status: Never smoker Allergies Allergies Allergy/AdvReac Type Severity Reaction Status Date / Time No Known Allergies Allergy Verified 02/04/24 09:29 Current Medications Home Medications metoprolol tartrate 25 mg tablet 25 mg PO BID 12/01/21 [History Confirmed 02/04/24 Last Taken 02/04/24] clobetasol 0.05 % topical ointment See Rx Instructions .Route .COMPLEX #60 grams 02/12/23 [Rx Confirmed 02/04/24 Last Taken 02/03/24] finasteride 5 mg tablet See Rx Instructions .Route .COMPLEX #90 tabs 12/17/23 [Rx Confirmed 02/04/24 Last Taken 02/02/24] tamsulosin 0.4 mg capsule See Rx Instructions .Route .COMPLEX #90 caps 12/17/23 [Rx Confirmed 02/04/24 Last Taken 02/02/24] levothyroxine 125 mcg tablet 125 mcg PO DAILY #90 tabs 12/24/23 [Rx Confirmed 02/04/24 Last Taken 02/03/24] sulfamethoxazole 800 mg-trimethoprim 160 mg tablet (Bactrim DS) 1 tab PO BID rash to groin and abdomen #14 tabs 01/29/24 [Rx Confirmed 02/04/24 Last Taken 02/03/24] clindamycin phosphate 1 % topical gel 1 applic topical 2XD rash 02/04/24 [History Confirmed 02/04/24 Last Taken 02/04/24] ketoconazole 2 % topical cream 1 applic topical DAILY rash to groin and waist 02/04/24 [History Confirmed 02/04/24 Last Taken 02/03/24] Home Acetaminophen (Acetaminophen 325 Mg Tablet) 650 mg PO Q4H PRN PRN Reason: Mild Pain Finasteride (Finasteride 5 Mg Tablet) 5 mg PO DAILY [facility] Ciprofloxacin/Dextrose (Cipro 400 Mg/200 Ml D5w) 400 mg in 200 mls @ 200 mls/hr IV Q12HR [facility] Stop: 02/07/24 20:59 Metronidazole (Flagyl 500 Mg/100 Ml) 500 mg in 100 mls @ 100 mls/hr IV Q8HR [facility] Stop: 02/07/24 20:59 Levothyroxine Sodium (Levothyroxine Sodium 100 Mcg Tablet) 100 mcg PO QDAC2 [facility] Levothyroxine Sodium (Levothyroxine Sodium 25 Mcg Tablet) 25 mcg PO QDAC2 [facility] Metoclopramide HCl (Metoclopramide Hcl 10 Mg/2 Ml) 5 mg IVP Q6H PRN PRN Reason: Nausea / Vomiting Metoprolol Tartrate (Metoprolol Tartrate 25 Mg Tablet) 25 mg PO BID [facility] Non-Formulary Medication (Clindamycin Phosphate) 1 applic TP 2XD [facility] Non-Formulary Medication (Ketoconazole) 1 applic TP DAILY [facility] Non-Formulary Medication (Clobetasol) 0 gm TP BID [facility] Ondansetron HCl (Ondansetron Hcl/Pf 4 Mg/2 Ml Sdv) 4 mg IVP Q6H PRN PRN Reason: Nausea / Vomiting Pantoprazole Sodium (Pantoprazole Sodium 40 Mg Vial) 40 mg IVP BID [facility] Saccharomyces Boulardii (Saccharomyces Boulardii 250 Mg Capsule) 250 mg PO BID [facility] Tamsulosin HCl (Tamsulosin Hcl 0.4 Mg Cap.Er.24h) 0.4 mg PO DAILY [facility] Trimethoprim/Sulfamethoxazole (Sulfamethoxazole/Trimethoprim 800/160 Mg Tablet) 1 tab PO BID [facility] Stop: 02/07/24 20:59 Discontinued Medications Sodium Chloride (Sodium Chloride) 1,000 mls @ 1,000 mls/hr IV BOLUS ONE Stop: 02/04/24 10:23 Last Infusion: 02/04/24 11:15 Dose: Infused Lactated Ringer's (Lactated Ringers) 1,000 mls @ 125 mls/hr IV .Q8H ONE Stop: 02/04/24 18:32 Last Admin: 02/04/24 11:20 Dose: 125 mls/hr Metronidazole (Flagyl 500 Mg/100 Ml) 500 mg in 100 mls @ 100 mls/hr IV ONCE ONE Stop: 02/04/24 12:41 Last Admin: 02/04/24 12:22 Dose: 100 mls/hr Sodium Chloride (Sodium Chloride) 1,000 mls @ 100 mls/hr IV .Q10H [facility] Last Admin: 02/04/24 13:30 Dose: 100 mls/hr Morphine Sulfate (Morphine Sulfate 2 Mg/Ml Syringe) 2 mg IVP ONCE ONE Stop: 02/04/24 09:51 Last Admin: 02/04/24 09:59 Dose: 2 mg Non-Formulary Medication (Levothyroxine) 125 mcg PO DAILY [facility] Ondansetron HCl (Ondansetron Hcl/Pf 4 Mg/2 Ml Sdv) 4 mg IVP ONCE STA Stop: 02/04/24 09:51 Last Admin: 02/04/24 09:58 Dose: 4 mg Pantoprazole Sodium (Pantoprazole Sodium 40 Mg Vial) 40 mg IVP ONCE ONE Stop: 02/04/24 09:51 Last Admin: 02/04/24 09:58 Dose: 40 mg Opioid Naive vs. Tolerant Does Patient Take Opioids?: Yes Is Patient Opioid Naive?: No What is Opioid Naive?: *Opioid Naive implies the patient is not already taking opioids or not chronically receiving opioids on a daily basis. *PRN dosing is not "usually" associated with tolerance. *Patients are at higher risk of over-sedation and aspiration. Is Patient Opioid Tolerant?: No What is Opioid Tolerant?: *Opioid Tolerance implies less than the expected response to an opioid. *Acquired tolerance is defined by the patient taking 60mg of oral morphine daily (or equianalgesic dose of another opioid) for 1 week or more. *Often associated with chronic pain. *May take more than usual dose to achieve desired pain control. Review of Systems Constitutional: Reports No symptoms Head: Reports Normocephalic Eyes: Reports No symptoms Ears: Reports No symptoms Nose: Reports No symptoms Mouth: Reports No symptoms Throat: Reports No symptoms Cardiovascular: Reports Orthopnea Respiratory: Reports Shortness of air Gastrointestinal: Reports Nausea, Vomiting and Abdominal pain Genitourinary: Reports No Symptoms Musculoskeletal: Reports No symptoms Endocrine: Reports No symptoms Hematology: Reports No symptoms Immunology: Reports No symptoms Neurological: Reports Dizziness Psychiatric: Reports No symptoms Physical examination Most Recent Vital Signs: Most Recent Vital Signs Temperature 98.7 F 02/04/24 12:45 Temperature Source Temporal Artery Scan 02/04/24 12:45 Temperature Source Oral 02/04/24 09:23 Pulse Rate 83 02/04/24 12:45 Respiratory Rate 20 02/04/24 12:45 Blood Pressure 145/77 H 02/04/24 09:23 Blood Pressure Left Arm 145/69 02/04/24 12:45 Blood Pressure Position Sitting 02/04/24 12:45 O2 Sat by Pulse Oximetry 94 L 02/04/24 12:45 Oxygen Delivery Method Room Air 02/04/24 14:00 Height 6 ft 2 in 02/04/24 12:45 Weight 120 kg 02/04/24 12:45 Telemetry Type Remote Telemetry 02/04/24 13:00 Telemetry Monitoring Started 02/04/24 13:00 Telemetry Heart Rate 91 02/04/24 13:00 EKG CO Interval 0.14 02/04/24 13:00 EKG QRS Interval 0.04 L 02/04/24 13:00 Telemetry Strip Reading SR 02/04/24 13:00 Labs This Visit Labs This Visit: Labs This Visit 02/04/24 02/04/24 09:35 10:41 WBC 9.79 RBC 4.37 L Hgb 13.1 L Hct 39.7 L MCV 90.8 MCH 30.0 MCHC 33.0 RDW Coeff of Magali 12.9 Plt Count 300 Immature Gran % (Auto) 0.3 Neut % (Auto) 85.5 H Lymph % (Auto) 5.9 L Garland % (Auto) 7.6 Eos % (Auto) 0.3 Baso % (Auto) 0.4 Neut # (Auto) 8.4 H Lymph # (Auto) 0.6 Garland # (Auto) 0.7 Eos # (Auto) 0.0 Baso # (Auto) 0.0 Immature Gran # (Auto) 0.0 Sodium 129.0 L Potassium 4.39 Chloride 98.9 Carbon Dioxide 21.2 L Anion Gap 13.29 BUN 16.3 Creatinine 1.55 H Estimated GFR (MDRD) 44.00 BUN/Creatinine Ratio 10.51 Glucose 139.8 H Lactic Acid 0.84 Calcium 8.61 Total Bilirubin 0.75 AST 40.4 ALT 26.1 Alkaline Phosphatase 90.5 Troponin I 0.031 NT-Pro-B Natriuret Pep 1260 H Total Protein 7.65 Albumin 4.16 Globulin 3.49 Albumin/Globulin Ratio 1.19 Urine Color Judy Urine Clarity Clear Urine pH 6.0 Ur Specific [place] >=1.030 Urine Protein 2+ H Urine Glucose (UA) Negative Urine Ketones 1+ H Urine Blood Trace-intact H Urine Nitrite Negative Urine Bilirubin Negative Urine Urobilinogen 0.2 Ur Leukocyte Esterase Negative Urine Microscopic RBC 2-5 Ur Squamous Epith Cells Not Reportable Urine Mucus 1+ H. pylori IgG Antibody Negative Influ A Molecular Assay Negative by naat Influ B Molecular Assay Negative by naat SARS CoV-2 RNA Rapid VANGIE Negative Imaging Imaging: EXAM: CT OF THE ABDOMEN AND PELVIS WITH CONTRAST FINDINGS: Liver: Liver measures 19.9 cm. Hepatic steatosis. Correlation with LFTs recommended. Gallbladder: No gallstones. Bile ducts: No intra or extrahepatic biliary ductal dilatation. Pancreas: No lesions. The main pancreatic duct is not dilated. Spleen: The spleen is not enlarged. Small accessory splenule. Adrenal glands: Within normal limits. Kidneys: No hydronephrosis. No renal calculi. Right renal cyst measuring 2.5 cm. Ureters: Within normal limits Urinary bladder: Bladder wall thickening which may be secondary to bladder outlet obstruction versus cystitis. Correlation with urinalysis recommended. Reproductive organs: Prostate measures 6.8 cm. Peritoneum: No ascites or free intraperitoneal air. Colonic diverticula without evidence of acute diverticulitis. Liquefied stool in the right-sided colon suggestive of enterocolitis. Clinical correlation advised. Normal appendix. Gastrointestinal tract: Normal caliber. Small hiatal hernia. Small duodenal diverticulum measuring up to 1.9 cm. Lymph nodes: Pericaval lymph node measuring up to 1.1 cm in short axis, nonspecific but likely reactive. Attention on follow-up recommended. Prominent left groin lymph nodes measuring up to 1.4 cm in short axis. Vessels: Atherosclerosis in the abdominal aorta and branch vessels. No aneu rysm. Abdominal wall: Small bilateral fat containing inguinal hernias. Osseous structures: Degenerative changes. Lower thorax: Mild bibasilar atelectasis and/or pneumonitis. IMPRESSION: - Bladder wall thickening which may be secondary to bladder outlet obstruction versus cystitis. Correlation with urinalysis recommended. - Liquefied stool in the right-sided colon suggestive of enterocolitis. C linical correlation advised. - Colonic diverticula without evidence of acute diverticulitis. Normal appendix. - Enlarged prostate measuring 6.8 cm. - Right renal cyst measuring 2.5 cm. - Small bilateral fat containing inguinal hernias. Small hiatal hernia. - Mild bibasilar atelectasis and/or pneumonitis. Review Statement Review Statement: I have independently reviewed and interpreted the labs/EKGs/imaging that were ordered by the ER provider. I have reviewed all outside records that are available currently in our EMR including imaging/notes/labs from previous visits. Plan Plan: 1. Entercolitis - flagyl and cipro, protonix 40 mg BID, clear liquid diet 2. MARGO on CKD - creatinine 1.5 today, baseline 1.1; 1.5L of fluids given by ER, holding fluids due to retention, bladder scan post void due to concern of bladder outlet obstruction, avoid nephrotoxins/hypotension 3. Hyponatremia - mild, likely due to #2, received 1L in ER and 1/2L prior to arrival to the floor, stopping fluids due to SOB and elevated BNP, unable to complete osmolalities due to start of hydration prior to urine collection, will repeat bmp 1999 4. Acute CHF exacerbation - BNP 1260 today, sob; I&O, daily weight, lasix 20 mg IVP Q12H, echo ordered 5. A fib - chronic, not in RVR, continue home medications DVT Prophylaxis: Ambulation Time Spent: Greater than 80 minutes spent with patient, 50% of the time spent with this patient was devoted to counseling and coordination of care. [facility] minutes spent discussing advance care planning. Disposition: Admit to: Med/Surg Observation Full Code Discussed Plan of Care with Dr. Summer Rondon. Medications Medication Orders: Medications Ordered Category Date Time Status Acetaminophen [Tylenol] Meds 02/04/24 12:40 Active 650 mg PO Q4H PRN Ciprofloxacin/D5w [Cipro 400 mg/200 ml D5w] Meds 02/04/24 21:00 Active 400 mg in 200 ml IV Q12HR Finasteride [Proscar] Meds 02/05/24 09:00 Active 5 mg PO DAILY Levothyroxine Sodium [Synthroid] Meds 02/05/24 06:00 Active 100 mcg PO QDAC2 Levothyroxine Sodium [Synthroid] Meds 02/05/24 06:00 Active 25 mcg PO QDAC2 Metoclopramide HCl [Reglan] Meds 02/04/24 12:35 Active 5 mg IVP Q6H PRN Metoprolol Tartrate [Lopressor] Meds 02/04/24 21:00 Active 25 mg PO BID Metronidazole/Sodium Chloride [Flagyl 500 mg/100 ml] Meds 02/04/24 21:00 Active 500 mg in 100 ml IV Q8HR Ondansetron HCl/Pf [Zofran 4 mg/2 ml] Meds 02/04/24 12:35 Active 4 mg IVP Q6H PRN Pantoprazole Sodium [Protonix] Meds 02/04/24 21:00 Active 40 mg IVP BID Saccharomyces Boulardii [Florastor] Meds 02/04/24 21:00 Active 250 mg PO BID Sodium Chloride 0.9% [Sodium Chloride] 1,000 ml Meds 02/04/24 13:00 Active IV 100 mls/hr Sulfamethoxazole/Trimethoprim [Bactrim Ds 800/160 mg] Meds 02/04/24 21:00 Active 1 tab PO BID Tamsulosin HCl [Flomax] Meds 02/05/24 09:00 Active 0.4 mg PO DAILY clindamycin phosphate Meds 02/04/24 21:00 Active 1 applic TP 2XD clobetasol Meds 02/04/24 21:00 Active See Dose Instructions TP BID ketoconazole Meds 02/05/24 09:00 Active 1 applic TP DAILY
[2024-02-04] MEDS: GLYDO TRANSURETH ONE (16:15)
[2024-02-04] MEDS: LASIX IVP SCH (17:06)
[2024-02-04] MEDS: FLAGYL 500 MG/100 ML 500 MG/100 ML BAG IV SCH (20:24)
[2024-02-04] MEDS: LOPRESSOR PO SCH (20:25)
[2024-02-04] MEDS: BACTRIM DS 800/160 MG PO SCH (20:25)
[2024-02-04] MEDS: FLORASTOR PO SCH (20:25)
[2024-02-04] MEDS: PROTONIX IVP SCH (20:25)
[2024-02-04 20:35] LABS: BLOOD UREA NITROGEN 16.5 mg/dL (9-20); CALCIUM 7.9 mg/dL (8.4-10.2); CARBON DIOXIDE 22.6 mmol/L (22-30.0); CHLORIDE 97.4 mmol/L (98-107); CREATININE 1.52 mg/dL (0.60-1.10); GLUCOSE 100.7 mg/dL (74-106); POTASSIUM 4.1 mmol/L (3.5-5.1); SODIUM 128.6 mmol/L (134.5-145)
[2024-02-04] MEDS: NON-FORMULARY MEDICATION (Clindamycin Phosphate 1 % gel) TP SCH (20:41)
[2024-02-04] MEDS: CIPRO 400 MG/200 ML D5W 400 MG/200 ML BAG IV SCH (21:57)
[2024-02-05] MEDS: SYNTHROID PO SCH ×2 (05:03)
[2024-02-05 05:23] LABS: BASOPHILS % (AUTO) 0.2 % (0.0-3.0); EOSINOPHILS # (AUTO) 0.1 K/ul (0.0-0.7); EOSINOPHILS % (AUTO) 1.2 % (0.0-7.0); HEMATOCRIT 36.8 % (42.0-52.0); IMMATURE GRANULOCYTE % (AUTO) 0.2 % (0.0-5.0); LYMPHOCYTES # (AUTO) 0.4 K/uL (0.60-3.4); LYMPHOCYTES % (AUTO) 4.7 (10.0-50.0); MEAN CORPUSCULAR HEMOGLOBIN 29.8 pg (27.0-31.0); MEAN CORPUSCULAR HGB CONC 32.6 (31.8-35.4); MEAN CORPUSCULAR VOLUME 91.3 fl (80.0-94.0); MONOCYTES # (AUTO) 0.8 K/uL (0.4-2.0); MONOCYTES % (AUTO) 8.1 (0-10); NEUTROPHILS % (AUTO) 85.6 % (42.2-75.2); PLATELET COUNT 279 10^3/uL (140-440); RDW COEFFICIENT OF VARIATION 13.2 % (11.6-14.8); RED BLOOD COUNT 4.03 10^6/ul (4.70-6.10); WHITE BLOOD COUNT 9.31 K/ul (4.2-10.2)
[2024-02-05 05:39] LABS: ALANINE AMINOTRANSFERASE 25.8 U/L (0-50); ALBUMIN 3.55 g/dL (3.5-5.0); ALKALINE PHOSPHATASE 80.9 U/L (56-119); ASPARTATE AMINO TRANSFERASE 32.8 U/L (17-59); BILIRUBIN,TOTAL 0.56 mg/dL (0.2-1.3); BLOOD UREA NITROGEN 17.3 mg/dL (9-20); CALCIUM 7.87 mg/dL (8.4-10.2); CARBON DIOXIDE 20.4 mmol/L (22-30.0); CHLORIDE 98.9 mmol/L (98-107); CREATININE 1.54 mg/dL (0.60-1.10); GLUCOSE 105.9 mg/dL (74-106); POTASSIUM 4.16 mmol/L (3.5-5.1); SODIUM 128.9 mmol/L (134.5-145); TOTAL PROTEIN 6.84 g/dL (6.3-8.2)
[2024-02-05] MEDS: PROSCAR PO SCH (08:31)
[2024-02-05] MEDS: FLOMAX PO SCH (08:32)
[2024-02-05] MEDS: KETOCONAZOLE 2% TP SCH (08:43)
--- NOTE | 2024-02-05 09:22 | PCM.PROG ---
Date/Time Seen Date Seen by Provider: 02/05/24 Time Seen by Provider: 08:40 Provider Provider: KOBI VALENCIA, [facility] Chief Complaint Chief Complaint: ACUTE KIDNEY INJURY, DEHYDRATION, GASTRO, SYNCOPAL Subjective Subjective: 3L urine output since yesterday. Had fever this am. No longer short of breath today. Nauseated after bland regular diet for breakfast. Objective Appearance: Positive No Apparent Distress and Alert and Oriented x3 Chest/Lungs: Positive Symmetrical With Equal Breath Sounds, Clear to Auscultation Bilaterally and Good Air Movement all 4 Lung Hooks Heart: Positive RRR and Pulses Normal GI/: Positive Soft, Nontender, Bowel Sounds Normal and No Distention Musculoskeletal: Positive Not Examined Neurological: Positive Sensation Intact, Motor intact, Alert, Oriented and Muscle Strength 5/5 in Upper and Lower Extremities Bilaterally Vital Signs Vital Signs: Vital Signs: Last 24 Hours 02/04/24 09:23 02/04/24 12:45 02/04/24 12:45 Temperature 98.7 F 98.7 F Temperature Source Oral Temporal Artery Scan Pulse Rate 71 83 Pulse Rate [Apical] Respiratory Rate 18 20 Blood Pressure 145/77 H Blood Pressure Mean Blood Pressure Left Arm 145/69 Blood Pressure Location Blood Pressure Position Sitting O2 Sat by Pulse Oximetry 95 94 L Oxygen Delivery Method Room Air Room Air Height 6 ft 2 in 6 ft 2 in Weight 120.1 kg 120 kg Telemetry Type Telemetry Monitoring Telemetry Heart Rate EKG WI Interval EKG QRS Interval Telemetry Strip Reading 02/04/24 13:00 02/04/24 13:00 02/04/24 14:00 Temperature Temperature Source Pulse Rate Pulse Rate [Apical] Respiratory Rate Blood Pressure Blood Pressure Mean Blood Pressure Left Arm Blood Pressure Location Blood Pressure Position O2 Sat by Pulse Oximetry Oxygen Delivery Method Room Air Room Air Height Weight Telemetry Type Remote Telemetry Telemetry Monitoring Started Telemetry Heart Rate 91 EKG WI Interval 0.14 EKG QRS Interval 0.04 L Telemetry Strip Reading SR 02/04/24 14:00 02/04/24 14:45 02/04/24 15:00 Temperature 99.4 F Temperature Source Oral Pulse Rate 76 Pulse Rate [Apical] Respiratory Rate 16 Blood Pressure 121/65 Blood Pressure Mean 83 Blood Pressure Left Arm Blood Pressure Location Left Arm Blood Pressure Position O2 Sat by Pulse Oximetry 95 Oxygen Delivery Method Room Air Room Air Height Weight 120 kg Telemetry Type Telemetry Monitoring Telemetry Heart Rate EKG WI Interval EKG QRS Interval Telemetry Strip Reading 02/04/24 16:00 02/04/24 16:52 02/04/24 18:00 Temperature Temperature Source Pulse Rate Pulse Rate [Apical] Respiratory Rate Blood Pressure Blood Pressure Mean Blood Pressure Left Arm Blood Pressure Location Blood Pressure Position O2 Sat by Pulse Oximetry Oxygen Delivery Method Room Air Room Air Room Air Height Weight Telemetry Type Telemetry Monitoring Telemetry Heart Rate EKG WI Interval EKG QRS Interval Telemetry Strip Reading 02/04/24 18:00 02/04/24 18:00 02/04/24 19:00 Temperature 98.9 F Temperature Source Temporal Artery Scan Pulse Rate 64 Pulse Rate [Apical] Respiratory Rate 16 Blood Pressure 105/60 Blood Pressure Mean 75 Blood Pressure Left Arm Blood Pressure Location Left Arm Blood Pressure Position Sitting O2 Sat by Pulse Oximetry 95 Oxygen Delivery Method Room Air Room Air Height Weight Telemetry Type Remote Telemetry Telemetry Monitoring Continues Telemetry Heart Rate 67 EKG WI Interval 0.20 EKG QRS Interval 0.08 Telemetry Strip Reading SR 02/04/24 19:00 02/04/24 19:38 02/04/24 20:00 Temperature Temperature Source Pulse Rate Pulse Rate [Apical] 68 Respiratory Rate 20 Blood Pressure Blood Pressure Mean Blood Pressure Left Arm Blood Pressure Location Blood Pressure Position O2 Sat by Pulse Oximetry Oxygen Delivery Method Room Air Room Air Room Air Height Weight Telemetry Type Telemetry Monitoring Telemetry Heart Rate EKG WI Interval EKG QRS Interval Telemetry Strip Reading 02/04/24 21:00 02/04/24 21:25 02/04/24 22:00 Temperature 98.5 F Temperature Source Temporal Artery Scan Pulse Rate 66 Pulse Rate [Apical] Respiratory Rate 18 Blood Pressure 128/71 Blood Pressure Mean 90 Blood Pressure Left Arm Blood Pressure Location Left Arm Blood Pressure Position Supine O2 Sat by Pulse Oximetry 93 L Oxygen Delivery Method Room Air Room Air Room Air Height Weight Telemetry Type Telemetry Monitoring Telemetry Heart Rate EKG WI Interval EKG QRS Interval Telemetry Strip Reading 02/04/24 23:00 02/05/24 00:00 02/05/24 01:00 Temperature Temperature Source Pulse Rate Pulse Rate [Apical] Respiratory Rate Blood Pressure Blood Pressure Mean Blood Pressure Left Arm Blood Pressure Location Blood Pressure Position O2 Sat by Pulse Oximetry Oxygen Delivery Method Room Air Room Air Room Air Height Weight Telemetry Type Telemetry Monitoring Telemetry Heart Rate EKG WI Interval EKG QRS Interval Telemetry Strip Reading 02/05/24 01:00 02/05/24 02:00 02/05/24 02:00 Temperature 99.0 F Temperature Source Oral Pulse Rate 73 Pulse Rate [Apical] Respiratory Rate 18 Blood Pressure 109/62 Blood Pressure Mean 77 Blood Pressure Left Arm Blood Pressure Location Left Arm Blood Pressure Position Supine O2 Sat by Pulse Oximetry 94 L Oxygen Delivery Method Room Air Room Air Height Weight Telemetry Type Remote Telemetry Telemetry Monitoring Continues Telemetry Heart Rate 71 EKG WI Interval 0.18 EKG QRS Interval 0.06 Telemetry Strip Reading SR 02/05/24 03:00 02/05/24 03:50 02/05/24 04:57 Temperature Temperature Source Pulse Rate Pulse Rate [Apical] Respiratory Rate Blood Pressure Blood Pressure Mean Blood Pressure Left Arm Blood Pressure Location Blood Pressure Position O2 Sat by Pulse Oximetry Oxygen Delivery Method Room Air Room Air Room Air Height Weight Telemetry Type Telemetry Monitoring Telemetry Heart Rate EKG WI Interval EKG QRS Interval Telemetry Strip Reading 02/05/24 05:33 02/05/24 06:00 02/05/24 07:00 Temperature 100.6 F H Temperature Source Oral Pulse Rate 71 Pulse Rate [Apical] Respiratory Rate 16 Blood Pressure 136/70 Blood Pressure Mean 92 Blood Pressure Left Arm Blood Pressure Location Left Arm Blood Pressure Position Supine O2 Sat by Pulse Oximetry 94 L Oxygen Delivery Method Room Air Room Air Room Air Height Weight Telemetry Type Telemetry Monitoring Telemetry Heart Rate EKG WI Interval EKG QRS Interval Telemetry Strip Reading 02/05/24 07:00 02/05/24 08:00 02/05/24 09:00 Temperature Temperature Source Pulse Rate Pulse Rate [Apical] Respiratory Rate Blood Pressure Blood Pressure Mean Blood Pressure Left Arm Blood Pressure Location Blood Pressure Position O2 Sat by Pulse Oximetry Oxygen Delivery Method Room Air Room Air Height Weight Telemetry Type Remote Telemetry Telemetry Monitoring Continues Telemetry Heart Rate 72 EKG WI Interval 0.16 EKG QRS Interval 0.04 L Telemetry Strip Reading SR with PACs Lab Results Lab Results: Lab Results: Last 24 Hours 02/05/24 02/04/24 02/04/24 05:07 20:22 10:41 WBC 9.31 RBC 4.03 L Hgb 12.0 L Hct 36.8 L MCV 91.3 MCH 29.8 MCHC 32.6 RDW Coeff of Magali 13.2 Plt Count 279 Immature Gran % (Auto) 0.2 Neut % (Auto) 85.6 H Lymph % (Auto) 4.7 L [place] % (Auto) 8.1 Eos % (Auto) 1.2 Baso % (Auto) 0.2 Neut # (Auto) 8.0 H Lymph # (Auto) 0.4 L [place] # (Auto) 0.8 Eos # (Auto) 0.1 Baso # (Auto) 0.0 Immature Gran # (Auto) 0.0 Sodium 128.9 L 128.6 L Potassium 4.16 4.10 Chloride 98.9 97.4 L Carbon Dioxide 20.4 L 22.6 Anion Gap 13.76 12.70 BUN 17.3 16.5 Creatinine 1.54 H 1.52 H Estimated GFR (MDRD) 44.00 45.00 BUN/Creatinine Ratio 11.23 10.85 Glucose 105.9 100.7 Lactic Acid Calcium 7.87 L 7.90 L Total Bilirubin 0.56 AST 32.8 ALT 25.8 Alkaline Phosphatase 80.9 Troponin I NT-Pro-B Natriuret Pep Total Protein 6.84 Albumin 3.55 Globulin 3.29 Albumin/Globulin Ratio 1.07 Urine Color Judy Urine Clarity Clear Urine pH 6.0 Ur Specific [place] >=1.030 Urine Protein 2+ H Urine Glucose (UA) Negative Urine Ketones 1+ H Urine Blood Trace-intact H Urine Nitrite Negative Urine Bilirubin Negative Urine Urobilinogen 0.2 Ur Leukocyte Esterase Negative Urine Microscopic RBC 2-5 Ur Squamous Epith Cells Not Reportable Urine Mucus 1+ H. pylori IgG Antibody Influ A Molecular Assay Influ B Molecular Assay SARS CoV-2 RNA Rapid VANGIE 02/04/24 09:35 WBC 9.79 RBC 4.37 L Hgb 13.1 L Hct 39.7 L MCV 90.8 MCH 30.0 MCHC 33.0 RDW Coeff of Magali 12.9 Plt Count 300 Immature Gran % (Auto) 0.3 Neut % (Auto) 85.5 H Lymph % (Auto) 5.9 L [place] % (Auto) 7.6 Eos % (Auto) 0.3 Baso % (Auto) 0.4 Neut # (Auto) 8.4 H Lymph # (Auto) 0.6 [place] # (Auto) 0.7 Eos # (Auto) 0.0 Baso # (Auto) 0.0 Immature Gran # (Auto) 0.0 Sodium 129.0 L Potassium 4.39 Chloride 98.9 Carbon Dioxide 21.2 L Anion Gap 13.29 BUN 16.3 Creatinine 1.55 H Estimated GFR (MDRD) 44.00 BUN/Creatinine Ratio 10.51 Glucose 139.8 H Lactic Acid 0.84 Calcium 8.61 Total Bilirubin 0.75 AST 40.4 ALT 26.1 Alkaline Phosphatase 90.5 Troponin I 0.031 NT-Pro-B Natriuret Pep 1260 H Total Protein 7.65 Albumin 4.16 Globulin 3.49 Albumin/Globulin Ratio 1.19 Urine Color Urine Clarity Urine pH Ur Specific [place] Urine Protein Urine Glucose (UA) Urine Ketones Urine Blood Urine Nitrite Urine Bilirubin Urine Urobilinogen Ur Leukocyte Esterase Urine Microscopic RBC Ur Squamous Epith Cells Urine Mucus H. pylori IgG Antibody Negative Influ A Molecular Assay Negative by naat Influ B Molecular Assay Negative by naat SARS CoV-2 RNA Rapid VANGIE Negative Additional Comments Additional Comments: I have independently reviewed and interpreted the labs/EKGs/imaging ordered during this hospital stay. I have reviewed outside records that are available in our EMR that pertain to medical stay including imaging/notes/labs from previous visits. Active Medications Active Medications: Medications Generic Name Dose Route Start Last Admin Trade Name Freq PRN Reason Stop Dose Admin Acetaminophen 650 mg 02/04/24 12:40 Acetaminophen 325 Mg Tablet PO Q4H PRN Mild Pain Finasteride 5 mg 02/05/24 09:00 02/05/24 08:31 Finasteride 5 Mg Tablet PO 5 mg DAILY CHRISTINE Administration Furosemide 20 mg 02/06/24 06:00 Furosemide 20 Mg Tablet PO QDAC2 CHRISTINE Ciprofloxacin/Dextrose 400 mg in 200 mls @ 200 mls/hr 02/04/24 21:00 02/05/24 08:31 Cipro 400 Mg/200 Ml D5w IV 02/07/24 20:59 200 mls/hr Q12HR CHRISTINE Administration Metronidazole 500 mg in 100 mls @ 100 mls/hr 02/04/24 21:00 02/05/24 05:03 Flagyl 500 Mg/100 Ml IV 02/07/24 20:59 100 mls/hr Q8HR CHRISTINE Administration Levothyroxine Sodium 100 mcg 02/05/24 06:00 02/05/24 05:03 Levothyroxine Sodium 100 Mcg Tablet PO 100 mcg QDAC2 CHRISTINE Administration Levothyroxine Sodium 25 mcg 02/05/24 06:00 02/05/24 05:03 Levothyroxine Sodium 25 Mcg Tablet PO 25 mcg QDAC2 HCRISTINE Administration Metoclopramide HCl 5 mg 02/04/24 12:35 Metoclopramide Hcl 10 Mg/2 Ml IVP Q6H PRN Nausea / Vomiting Metoprolol Tartrate 25 mg 02/04/24 21:00 02/05/24 08:31 Metoprolol Tartrate 25 Mg Tablet PO 25 mg BID CHRISTINE Administration Non-Formulary Medication 1 applic 02/04/24 21:00 02/05/24 08:42 Clindamycin Phosphate TP Not Given 2XD CHRISTINE Non-Formulary Medication 1 applic 02/05/24 09:00 02/05/24 08:43 Ketoconazole TP Not Given DAILY [facility] Non-Formulary Medication 0 gm 02/04/24 21:00 02/05/24 08:42 Clobetasol TP Not Given BID CHRISTINE Ondansetron HCl 4 mg 02/04/24 12:35 Ondansetron Hcl/Pf 4 Mg/2 Ml Sdv IVP Q6H PRN Nausea / Vomiting Pantoprazole Sodium 40 mg 02/04/24 21:00 02/05/24 08:31 Pantoprazole Sodium 40 Mg Vial IVP 40 mg BID CHRISTINE Administration Saccharomyces Boulardii 250 mg 02/04/24 21:00 02/05/24 08:31 Saccharomyces Boulardii 250 Mg Capsule PO 250 mg BID CHRISTINE Administration Tamsulosin HCl 0.4 mg 02/05/24 09:00 02/05/24 08:32 Tamsulosin Hcl 0.4 Mg Cap.Er.24h PO 0.4 mg DAILY CHRISTINE Administration Trimethoprim/Sulfamethoxazole 1 tab 02/04/24 21:00 02/05/24 08:32 Sulfamethoxazole/Trimethoprim 800/160 Mg Tablet PO 02/06/24 10:59 1 tab BID CHRISTINE Administration Plan Plan: 1. Entercolitis - fever this am; flagyl and cipro, protonix 40 mg BID, bland diet 2. MARGO on CKD - creatinine unchanged - likely due to diuresis, wean lasix today, bladder scan post void showed residual - adamson catheter placed, 3L output as of this am, avoid nephrotoxins/hypotension 3. Hyponatremia - mild, asymptomatic, received 1LNS in ER and 1/2L LR prior to arrival to the floor, stopping fluids due to SOB and elevated BNP, unable to complete osmolalities due to start of hydration prior to urine collection, 1800 fluid restriction 4. Acute CHF exacerbation - BNP 1260, sob; I&O, daily weight, transition lasix to PO starting tomorrow, echo ordered, 1800 fluid restriction 5. A fib - chronic, not in RVR, continue home medications Review Statement Review Statement: I have personally discussed and reviewed the patient's visit/currently labs/imaging/decision making with Dr. Rondon, my supervising attending. Greater that 50 minutes spent with patient, 50% of the time spent with this patient was devoted to counseling and coordination of care.
[2024-02-05] MEDS: REGLAN IVP PRN (21:13)
[2024-02-05] MEDS: LEVAQUIN 500 MG/100 ML D5W 500 MG/100 ML BAG IV SCH (21:43)
[2024-02-06] MEDS: LASIX TAB PO SCH (05:02)
[2024-02-06 05:28] LABS: BASOPHILS % (AUTO) 0.2 % (0.0-3.0); EOSINOPHILS # (AUTO) 0.1 K/ul (0.0-0.7); EOSINOPHILS % (AUTO) 0.9 % (0.0-7.0); HEMATOCRIT 34.2 % (42.0-52.0); HEMOGLOBIN 11.6 g/dl (14.0-18.0); IMMATURE GRANULOCYTE % (AUTO) 0.3 % (0.0-5.0); LYMPHOCYTES # (AUTO) 0.4 K/uL (0.60-3.4); LYMPHOCYTES % (AUTO) 3.8 (10.0-50.0); MEAN CORPUSCULAR HEMOGLOBIN 30.1 pg (27.0-31.0); MEAN CORPUSCULAR HGB CONC 33.9 (31.8-35.4); MEAN CORPUSCULAR VOLUME 88.6 fl (80.0-94.0); MONOCYTES # (AUTO) 0.7 K/uL (0.4-2.0); MONOCYTES % (AUTO) 7.5 (0-10); NEUTROPHILS # (AUTO) 8.5 K/ul (2.0-6.9); NEUTROPHILS % (AUTO) 87.3 % (42.2-75.2); PLATELET COUNT 276 10^3/uL (140-440); RED BLOOD COUNT 3.86 10^6/ul (4.70-6.10); WHITE BLOOD COUNT 9.73 K/ul (4.2-10.2)
[2024-02-06 05:45] LABS: ALANINE AMINOTRANSFERASE 29.3 U/L (0-50); ALBUMIN 3.41 g/dL (3.5-5.0); ALKALINE PHOSPHATASE 78.7 U/L (56-119); ASPARTATE AMINO TRANSFERASE 32.4 U/L (17-59); BILIRUBIN,TOTAL 0.59 mg/dL (0.2-1.3); BLOOD UREA NITROGEN 18.3 mg/dL (9-20); CALCIUM 8.2 mg/dL (8.4-10.2); CARBON DIOXIDE 20.3 mmol/L (22-30.0); CHLORIDE 97.2 mmol/L (98-107); CREATININE 1.43 mg/dL (0.60-1.10); GLUCOSE 119.3 mg/dL (74-106); POTASSIUM 4.18 mmol/L (3.5-5.1); TOTAL PROTEIN 6.64 g/dL (6.3-8.2)
[2024-02-06] MEDS: SODIUM CHLORIDE PO SCH (09:10)
--- NOTE | 2024-02-06 10:02 | DCSUM ---
Admission Date Admission Date: 02/04/24 Discharge Date Discharge Date: 02/06/24 Admission Diagnosis Admission Diagnosis: 1. Entercolitis 2. MARGO on CKD 3. Hyponatremia 4. Acute CHF exacerbation 5. A fib Discharge Diagnosis Discharge Diagnosis: 1. Entercolitis - Improving 2. MARGO on CKD - Improving 3. Hyponatremia - mild, asymptomatic, salt tabs RX 4. Acute CHF exacerbation - Improving, diuresed 3+L 5. A fib Hospital Provider Hospital [facility] KOBI VALENCIA[facility] Primary Care Physician Primary Care Physician: DANGELO ELLIOTT APRN, KOBI Summary of History and Physical Summary of History and Physical: 78 yo male presented to the ER with complaints of dizziness and abdominal pain. Patient states that the abdominal pain started on Sunday night after work. Reports pain is located in lower abdomen and is worse after he eats. Describes as sharp, aching. Had 1 episode of vomiting yesterday and has been nauseated. States that the dizziness is constant but worse upon standing. Patient was found to have a sodium of [address] scan. Denies fever that he is aware of. Patient does report sob on exertion and orthopnea that has been going on for several weeks. Has pmh of open heart, follows with cardiology at [facility]. Denies chf history. Denies lower extremity edema consistently. He has recently been treated for MRSA infection to the groin and has appox. 4 days left to complete antibiotic course. States wound is healing and no longer draining. Does not wish for provider to assess. Admitted to med/surg observation. Hospital Course Subjective: During stay patient was initially treated for enterocolitis with Cipro and Flagyl. After first 24 hours patient began running fever. Antibiotics were adjusted to Levaquin for coverage of prostatitis. Patient was found to be retaining urine postvoid of 300+ mL after voiding 300 mL. Has past medical history of BPH and follows with Dr. Lopez with urology at [facility]. Has had multiple biopsies in the past. PSA labs were obtained and are send outs results pending. Crow catheter was placed. Patient has been tolerating clear liquid diet appropriately advance to bland diet yesterday still experiencing some nausea intermittently. Patient also voiced on admission that he was having shortness of breath on exertion and orthopnea. Has past medical history of triple bypass and A-fib. BNP collected and was found to be greater than 1200. Was started on Lasix 20 mg IV push every 12 hours. Transition to oral Lasix today. Diuresed over 3 L during stay. Echo completed and results pending. Incidentally noted hyponatremia. Likely contributing to dizziness as well as mild MARGO due to bladder outlet obstruction and colitis. Patient was diuresed and sodium did not improve with only fluid restriction. Patient is asymptomatic at this time sent Rx for salt tabs for 10 days recommend PCP repeating labs to ensure sodium has improved. Patient requesting to go home at this time. And feels he can recover better at home with colitis and be able to eat things that are more suitable for his needs. Sent Rx for Levaquin course, rest of Flagyl course, Lasix 20 mg daily, Zofran as needed, and salt tabs for 10 days. Follow-up appointment with Dr. Lopez urology scheduled. Follow-up with PCP next week Appearance: Pleasant, No Apparent Distress and Alert HEENT: MMM, Supple and No JVD CVS: No Murmur Abdomen: Soft, Non-Tender and No Distention Respiratory: No Dyspnea Extremities: No Edema Vital Signs: Most Recent Vital Signs Temperature 98.8 F 02/06/24 05:05 Temperature Source Temporal Artery Scan 02/06/24 05:05 Temperature Source Oral 02/04/24 09:23 Pulse Rate 72 02/06/24 05:05 Respiratory Rate 22 H 02/06/24 05:05 Blood Pressure 112/67 02/06/24 05:05 Blood Pressure Mean 82 02/06/24 05:05 Blood Pressure Left Arm 145/69 02/04/24 12:45 Blood Pressure Location Left Arm 02/06/24 05:05 Blood Pressure Position Sitting 02/06/24 05:05 O2 Sat by Pulse Oximetry 93 L 02/06/24 05:05 Oxygen Delivery Method Room Air 02/06/24 09:00 Height 6 ft 2 in 02/04/24 12:45 Weight 119.2 kg 02/06/24 05:38 Telemetry Type Remote Telemetry 02/06/24 07:00 Telemetry Monitoring Continues 02/06/24 07:00 Telemetry Heart Rate 71 02/06/24 07:00 EKG CO Interval 0.19 02/06/24 07:00 EKG QRS Interval 0.07 02/06/24 07:00 Telemetry Strip Reading SR w/ occ PVC 02/06/24 07:00 Imaging: EXAM: CT OF THE ABDOMEN AND PELVIS WITH CONTRAST COMPARISON: CT abdomen pelvis eight 30 HISTORY: Acute lower abdominal pain. TECHNIQUE: Axial CT images were obtained through the abdomen and pelvis with the administration of intravenous contrast. Coronal and sagittal reformatted images were also submitted for interpretation. FINDINGS: Liver: Liver measures 19.9 cm. Hepatic steatosis. Correlation with LFTs recommended. Gallbladder: No gallstones. Bile ducts: No intra or extrahepatic biliary ductal dilatation. Pancreas: No lesions. The main pancreatic duct is not dilated. Spleen: The spleen is not enlarged. Small accessory splenule. Adrenal glands: Within normal limits. Kidneys: No hydronephrosis. No renal calculi. Right renal cyst measuring 2.5 cm. Ureters: Within normal limits Urinary bladder: Bladder wall thickening which may be secondary to bladder outlet obstruction versus cystitis. Correlation with urinalysis recommended. Reproductive organs: Prostate measures 6.8 cm. Peritoneum: No ascites or free intraperitoneal air. Colonic diverticula without evidence of acute diverticulitis. Liquefied stool in the right-sided colon suggestive of enterocolitis. Clinical correlation advised. Normal appendix. Gastrointestinal tract: Normal caliber. Small hiatal hernia. Small duodenal diverticulum measuring up to 1.9 cm. Lymph nodes: Pericaval lymph node measuring up to 1.1 cm in short axis, nonspecific but likely reactive. Attention on follow-up recommended. Prominent left groin lymph nodes measuring up to 1.4 cm in short axis. Vessels: Atherosclerosis in the abdominal aorta and branch vessels. No aneurysm. Abdominal wall: Small bilateral fat containing inguinal hernias. Osseous structures: Degenerative changes. Lower thorax: Mild bibasilar atelectasis and/or pneumonitis. IMPRESSION: - Bladder wall thickening which may be secondary to bladder outlet obstruction versus cystitis. Correlation with urinalysis recommended. - Liquefied stool in the right-sided colon suggestive of enterocolitis. Clinical correlation advised. - Colonic diverticula without evidence of acute diverticulitis. Normal appendix. - Enlarged prostate measuring 6.8 cm. - Right renal cyst measuring 2.5 cm. - Small bilateral fat containing inguinal hernias. Small hiatal hernia. - Mild bibasilar atelectasis and/or pneumonitis. Lab Results Last 24 Hours: 02/06/24 05:08 WBC 9.73 RBC 3.86 L Hgb 11.6 L Hct 34.2 L MCV 88.6 MCH 30.1 MCHC 33.9 RDW Coeff of Magali 13.0 Plt Count 276 Immature Gran % (Auto) 0.3 Neut % (Auto) 87.3 H Lymph % (Auto) 3.8 L [place] % (Auto) 7.5 Eos % (Auto) 0.9 Baso % (Auto) 0.2 Neut # (Auto) 8.5 H Lymph # (Auto) 0.4 L [place] # (Auto) 0.7 Eos # (Auto) 0.1 Baso # (Auto) 0.0 Immature Gran # (Auto) 0.0 Sodium 126.0 L Potassium 4.18 Chloride 97.2 L Carbon Dioxide 20.3 L Anion Gap 12.68 BUN 18.3 Creatinine 1.43 H Estimated GFR (MDRD) 48.00 BUN/Creatinine Ratio 12.79 Glucose 119.3 H Calcium 8.20 L Total Bilirubin 0.59 AST 32.4 ALT 29.3 Alkaline Phosphatase 78.7 Total Protein 6.64 Albumin 3.41 L Globulin 3.23 Albumin/Globulin Ratio 1.05 Discharge Instructions Discharge Planning: Discharge Planning > 40 minutes If patient is discharged with left ventricular systolic dysfunction: No Discharged with a beta darrian? [] If no, why not? [] Discharged with an jose/arb? [] If no, why not? [] DIAGNOSIS: COLITIS, CHF, DEHYDRATION, URINARY RETENTION/PROSTATITIS DIET: BLAND, ADVANCE TOLERATED, RESTRICT YOUR FLUIDS TO 2L PER DAY ACTIVITY: TOLERATED FOLLOW-UP WITH PCP NEXT WEEK - HAVE LABS RECHECK FOLLOW-UP WITH DR. LOPEZ - UROLOGY FOR CATHETER Discharge Medications: Medications at Discharge (Home Meds & RX) metoprolol tartrate 25 mg tablet 25 mg PO BID 12/01/21 clobetasol 0.05 % topical ointment See Rx Instructions .Route .COMPLEX #60 grams 02/12/23 finasteride 5 mg tablet See Rx Instructions .Route .COMPLEX #90 tabs 12/17/23 tamsulosin 0.4 mg capsule See Rx Instructions .Route .COMPLEX #90 caps 12/17/23 levothyroxine 125 mcg tablet 125 mcg PO DAILY #90 tabs 12/24/23 sulfamethoxazole 800 mg-trimethoprim 160 mg tablet (Bactrim DS) 1 tab PO BID rash to groin and abdomen #14 tabs 01/29/24 clindamycin phosphate 1 % topical gel 1 applic topical 2XD rash 02/04/24 ketoconazole 2 % topical cream 1 applic topical DAILY rash to groin and waist 02/04/24 Discharge Plan Discharge Discharge Orders: Discharge Patient (ONCE); Ordered 02/06/24 Ordered By: NAYELI ADAME Activity Restrictions/Additional Instructions: DIAGNOSIS: COLITIS, CHF, DEHYDRATION, URINARY RETENTION/PROSTATITIS DIET: BLAND, ADVANCE TOLERATED, RESTRICT YOUR FLUIDS TO 2L PER DAY ACTIVITY: TOLERATED FOLLOW-UP WITH PCP NEXT WEEK - HAVE LABS RECHECK FOLLOW-UP WITH DR. LOPEZ - UROLOGY FOR CATHETER Instructions: Heart Failure (GEN), Dehydration (GEN), Prostatitis (GEN), Near Syncope (ED), Colitis (ED) Patient Disposition: HOME WITH FAMILY CARE Prescriptions: New furosemide 20 mg Tablet 20 mg PO QDAC2 Qty: 30 0RF Saccharomyces boulardii [Florastor] 250 mg Capsule 250 mg PO BID Qty: 60 0RF sodium chloride 1,000 mg Tablet,Soluble 1,000 mg PO TID Qty: 10 0RF levofloxacin 500 mg tablet 500 mg PO DAILY Qty: 3 0RF metronidazole 500 mg tablet 500 mg PO BID Qty: 10 0RF ondansetron 4 mg tablet,disintegrating 4 mg PO Q6H PRN (Reason: nausea and vomiting) Qty: 20 0RF Continued clobetasol 0.05 % ointment See Rx Instructions .ROUTE .COMPLEX Qty: 60 0RF Dose Instruction: APPLY TOPICALLY TO BILATERAL HANDS TWICE DAILY. ONLY USE FOR 2 WEEKS AT A TIME. Rx Instructions: APPLY TOPICALLY TO BILATERAL HANDS TWICE DAILY. ONLY USE FOR 2 WEEKS AT A TIME. tamsulosin 0.4 mg capsule See Rx Instructions .ROUTE .COMPLEX Qty: 90 0RF Dose Instruction: Take 1 capsule by mouth once daily Rx Instructions: Take 1 capsule by mouth once daily finasteride 5 mg tablet See Rx Instructions .ROUTE .COMPLEX Qty: 90 0RF Dose Instruction: Take 1 tablet by mouth once daily Rx Instructions: Take 1 tablet by mouth once daily levothyroxine 125 mcg tablet 125 mcg PO DAILY Qty: 90 0RF sulfamethoxazole-trimethoprim [Bactrim DS] 800-160 mg tablet 1 tab PO BID Qty: 14 0RF ketoconazole 2 % cream 1 applic topical DAILY clindamycin phosphate 1 % gel 1 applic topical 2XD metoprolol tartrate 25 mg tablet 25 mg PO BID Did you review [place] [employer] for ALL controlled substances?: No Discussed opioids are addictive and Narcan is available by prescription or from pharmacy.: No Condition: Stable
[2024-02-06 10:30] VITALS: BP 128/66; PULSE 64; RESP 17; TEMP 98
--- NOTE | 2024-02-06 13:05 | ECHO2D ---
Date of Exam: 02/05/2024 Room #: 115 Ordering Physician: NAYELI ADAME APRN (HOSPITALIST); DANGELO ELLIOTT APRN (PRIMARY CARE) Reason for Echo: SHORTNESS OF AIR, NEAR SYNCOPE, HISTORY OF ATRIAL FIBRILLATION, DIABETES MELLITUS TYPE 2, DYSLIPIDEMIA Murmurs: SYSTOLIC M-Mode Normal Adult Results LV Dimensions Normal Adult Results AoV Opening excursions >1.6 1.4 LVEDD-base- 3.5-5.8 5.7 Ao root dimensions 2.0-3.7 4.0 LVESD-base- 3.1-4.6 L. Atrium dimensions 1.9-3.8 5.1 Post. Wall thickness 0.8-1.1 1.5 IV septum (thickness) 0.7-1.2 1.6 Post. Wall excursion 0.72-1.3 NORMAL Septal motion 0.7 Systolic motion R. Ventricular cavity 1.5-2.0 NORMAL LVEF 60% 55% Paradoxical septal wall motion NORMAL 2-D : ENLARGED LEFT ATRIAL AND LEFT VENTRICLE CAVITIES. DILATED AORTIC ROOT. VALVES NORMAL. PROSTHETIC AORTIC VALVE WORKING WELL. NO EFFUSION. NO THROMBUS. M-MODE: MV: NORMAL AV: PROSTHETIC VALVE WORKING WELL. TV: NORMAL PV: NORMAL CHAMBER SIZE: ENLARGED LEFT ATRIAL CAVITY, BORDERLINE LEFT VENTRICLE CAVITY. WALL MOTION: NORMAL PERICARDIUM: NORMAL INTERPRETATION: 1. LEFT VENTRICULAR HYPERTROPHY WITH ENLARGED LEFT ATRIAL CAVITY. 2. PROSTHETIC AORTIC VALVE WORKING WELL. 3. BORDERLINE LEFT VENTRICLE CAVITY ENLARGEMENT. 4. LEFT VENTRICULAR EJECTION FRACTION 55%. 5. MILDLY DILATED AORTIC ROOT. MTDD
[2024-02-06 13:16] LABS: % FREE PROSTATE SPECIFIC AG 16.7 % (.); PROSTATE SPECIFIC AG, FREE 0.72 ng/mL
[2024-02-07 15:22] LABS: PSA TOTAL-DIAGNOSTIC 4.3 ng/mL (0.0-4.0)
[2024-02-08 08:23] LABS: PROSTATE SPECIFIC AG, SERUM 4.3 ng/mL (0.0-4.0)
== END 2024-02-06 13:05 | disposition home or self-care (01) ==
LOC: ED 09:21 → MEDSURG B 09:21
PROVIDERS: ADMIT Hospitalist; ATTEND Nurse Practitioner Family
DX: N40.0 Benign prostatic hyperplasia without lower urinary tract symptoms; J98.11 Atelectasis; R33.9 Retention of urine, unspecified; E87.1 Hypo-osmolality and hyponatremia; K52.9 Noninfective gastroenteritis and colitis, unspecified; N18.9 Chronic kidney disease, unspecified; N28.1 Cyst of kidney, acquired; E86.0 Dehydration; K40.20 Bilateral inguinal hernia, without obstruction or gangrene, not specified as recurrent; K57.30 Diverticulosis of large intestine without perforation or abscess without bleeding; D63.1 Anemia in chronic kidney disease; N17.9 Acute kidney failure, unspecified; K44.9 Diaphragmatic hernia without obstruction or gangrene; Z12.5 Encounter for screening for malignant neoplasm of prostate; R55 Syncope and collapse; I48.91 Unspecified atrial fibrillation; I50.9 Heart failure, unspecified